=== PATIENT | female | born 1940 | race Caucasian/White ===

== ENCOUNTER 2024-05-10 02:37 | Inpatient (IN) | payer MEDICARE, OTHER ==
[~2024-05-10] VITALS: Ht 157.5 cm; Wt 68.0 kg
[2024-05-10] MEDS ORDERED: MORPHINE SULFATE 4 MG/1 ML DISP.SYRIN ONE ×2 (03:23→13:45)
[2024-05-10] MEDS ORDERED: KETOROLAC TROMETHAMINE 15 MG INJ ONE (03:24)
[2024-05-10] MEDS ORDERED: ONDANSETRON 4 MG/2 ML VIAL ONE ×2 (03:24→13:44)
[2024-05-10 03:38] LABS: BASOPHILS % (AUTO) 0.4 % (0.0-2.0); EOSINOPHILS # (AUTO) 0.1 K/uL (0.0-0.7); EOSINOPHILS % (AUTO) 1.6 % (0.0-7.0); HEMATOCRIT 36.8 % (31.2-41.9); HEMOGLOBIN 12.3 g/dL (10.9-14.3); LYMPHOCYTES % (AUTO) 12.3 % (20.5-51.5); MEAN CORPUSCULAR HEMOGLOBIN 27.1 uug (24.7-32.8); MEAN CORPUSCULAR HGB CONC 34 g/dL (32.3-35.6); MONOCYTES # (AUTO) 0.5 K/uL (0.1-1.30); MONOCYTES % (AUTO) 6.5 % (0.0-11.0); NEUTROPHILS # (AUTO) 6.2 K/uL (1.8-8.9); NEUTROPHILS % (AUTO) 79.2 % (38.5-71.5); PLATELET COUNT (AUTO) 268 K/uL (179-408); RED BLOOD CELL COUNT(AUTO) 4.54 MIL/uL (3.63-4.92); RED CELL DISTRIBUTION WIDTH 15.4 % (12.3-17.7); WHITE BLOOD COUNT (AUTO) 7.8 K/uL (3.8-11.8)
[2024-05-10] MEDS: KETOROLAC TROMETHAMINE 15 MG INJ IVP ONE (03:39)
[2024-05-10] MEDS: MORPHINE SULFATE 2 MG/1 ML DISP.SYRIN IM ONE (03:39)
[2024-05-10] MEDS: IV NORMAL SALINE 1000 ML BAG IV ONE (03:39)
[2024-05-10] MEDS: ONDANSETRON 4 MG/2 ML VIAL IV ONE (03:39)
[2024-05-10 04:11] LABS: ALANINE AMINOTRANSFERASE 18 U/L (14-59); ALBUMIN 3.1 g/dL (3.4-5.0); ALKALINE PHOSPHATASE 80 U/L (50-136); ASPARTATE AMINOTRANSFERASE 16 U/L (15-37); BILIRUBIN,DIRECT 0.1 mg/dL (0.0-0.2); BILIRUBIN,TOTAL 0.5 mg/dL (0.2-1.0); CALCIUM 8.7 mg/dL (8.5-10.1); CARBON DIOXIDE 25 mmol/L (21-32); CHLORIDE 106 mmol/L (98-107); GLUCOSE 186 mg/dL (74-106); POTASSIUM 4.3 mmol/L (3.5-5.1); SODIUM SERUM 143 mmol/L (136-145); TOTAL PROTEIN, SERUM 6.9 g/dL (6.4-8.2); UREA NITROGEN, BLOOD 21 mg/dL (7-18)
[2024-05-10] MEDS ORDERED: DEXTROSE 50% 50 ML DISP.SYRIN IV PRN ×2 (06:00→19:30)
[2024-05-10] MEDS ORDERED: MAGNESIUM HYDROXIDE 30 ML LIQUID UDC PO PRN (06:00)
[2024-05-10] MEDS ORDERED: MORPHINE SULFATE 2 MG/1 ML DISP.SYRIN SQ PRN (06:00)
[2024-05-10] MEDS ORDERED: ACETAMINOPHEN 325 MG TABLET PO PRN (06:00)
[2024-05-10] MEDS: BLOOD SUGAR DIAGNOSTIC 1 EACH STRIP VI SCH ×2 (06:59→20:54)
[2024-05-10] MEDS ORDERED: DULA1.5P SQ (12:06)
[2024-05-10] MEDS ORDERED: DEXL60CA3 PO (12:06)
[2024-05-10] MEDS ORDERED: DAPA10TA PO (12:06)
[2024-05-10] MEDS ORDERED: IRBE1TAB33 PO (12:06)
[2024-05-10] MEDS ORDERED: PREG75CA PO (12:06)
[2024-05-10] MEDS ORDERED: MIRA50TA PO (12:06)
[2024-05-10] MEDS ORDERED: RANO10005 PO (12:06)
[2024-05-10] MEDS ORDERED: MEMA1CAP3 PO (12:06)
[2024-05-10] MEDS ORDERED: PIOG15TA8 PO (12:06)
[2024-05-10] MEDS ORDERED: LINA1TAB7 PO (12:06)
[2024-05-10] MEDS ORDERED: ASPI81TA31 PO (12:06)
[2024-05-10] MEDS ORDERED: NEBI10TA2 PO (12:06)
[2024-05-10] MEDS ORDERED: CLOP75TA33 PO (12:06)
[2024-05-10] MEDS ORDERED: AMLO-212 PO (12:06)
[2024-05-10] MEDS ORDERED: MECL-225 PO (12:06)
[2024-05-10] MEDS ORDERED: INSULIN REGULAR, HUMAN 1000 UNIT/10 ML VIAL ONE (12:50)
[2024-05-10] MEDS: INSULIN REGULAR, HUMAN 1000 UNIT/10 ML VIAL SQ PRN ×2 (12:55→20:58)
[2024-05-10] MEDS: ONDANSETRON 4 MG/2 ML VIAL IV PRN (13:56)
[2024-05-10] MEDS: MORPHINE SULFATE 2 MG/1 ML DISP.SYRIN SQ PRN (13:56)
[2024-05-10 14:17] VITALS: BP 130/56; TEMP 97.9; O2SAT 97
[2024-05-10] MEDS ORDERED: MORPHINE SULFATE 2 MG/1 ML DISP.SYRIN IV PRN (17:21)
[2024-05-10] MEDS: MORPHINE SULFATE 4 MG/1 ML DISP.SYRIN IV PRN (17:32)
[2024-05-10 19:45] VITALS: BP 135/51; TEMP 97.6; O2SAT 95
[2024-05-11] MEDS ORDERED: DEXTROSE 50% 50 ML DISP.SYRIN IV PRN (05:15)
[2024-05-11 05:18] VITALS: BP 136/73; TEMP 98.5; O2SAT 94
[2024-05-11] MEDS: BLOOD SUGAR DIAGNOSTIC 1 EACH STRIP VI SCH (05:23)
[2024-05-11] MEDS: INSULIN REGULAR, HUMAN 1000 UNIT/10 ML VIAL SQ PRN (05:47)
[2024-05-11] MEDS ORDERED: MECLIZINE HCL 12.5 MG TABLET PO PRN (09:45)
[2024-05-11] MEDS ORDERED: LIDOCAINE HCL 2% 5 ML JELLY ONE (11:40)
[2024-05-11] MEDS ORDERED: ROPIVACAINE HCL/PF 0.5% ( 5 MG/ML ) , 20 ML VIAL ONE (11:40)
[2024-05-11 11:41] VITALS: BP 150/59; TEMP 98.2; O2SAT 98
[2024-05-11] MEDS ORDERED: KETAMINE HCL 500 MG/5 ML VIAL ONE (11:41)
[2024-05-11] MEDS ORDERED: FAMOTIDINE. 20 MG/2 ML VIAL IV ONE (11:41)
[2024-05-11] MEDS ORDERED: ROCURONIUM BROMIDE 50 MG/5 ML VIAL ONE (11:41)
[2024-05-11] MEDS ORDERED: MIDAZOLAM HCL 10 MG/2 ML VIAL ONE (11:41)
[2024-05-11] MEDS ORDERED: FENTANYL CITRATE 100 MCG/2 ML AMPUL ONE (11:41)
[2024-05-11] MEDS ORDERED: TRANEXAMIC ACID 1,000 MG/10 ML VIAL ONE (11:47)
[2024-05-11] MEDS ORDERED: PROPOFOL 200 MG/20 ML BOTTLE ONE (12:01)
[2024-05-11] MEDS ORDERED: VANCOMYCIN 1000 MG VIAL ONE (12:34)
[2024-05-11] MEDS ORDERED: LABETALOL HCL 100 MG/20 ML VIAL ONE ×2 (12:36→13:41)
[2024-05-11] MEDS: LABETALOL HCL 100 MG/20 ML VIAL IV PRN (13:46)
[2024-05-11] MEDS: HYDROMORPHONE 1 MG/1 ML DISP.SYRIN IV PRN (13:55)
[2024-05-11] MEDS ORDERED: IV D5W-0.45% NS +20 KCL 1,000 ML IV ONE (14:22)
[2024-05-11] MEDS: hydrALAZINE HCL 20 MG/1 ML VIAL IV PRN (15:18)
[2024-05-11] MEDS: POTASSIUM CHLORIDE 20 MEQ in IV D5 1/2 NS 1000 ML 1,000 ML IV PRN (15:39)
[2024-05-11 15:50] VITALS: BP 193/88; TEMP 98; O2SAT 98
[2024-05-11] MEDS: MEMANTINE HCL 10 MG TABLET PO SCH (16:41)
[2024-05-11] MEDS: PREGABALIN 25 MG CAPSULE PO SCH (16:41)
[2024-05-11] MEDS ORDERED: Medication Not On Formulary EA (Pregabalin (Lyrica) 75 MG) PO SCH (17:00)
[2024-05-11 19:35] VITALS: BP 143/71; TEMP 98.1; O2SAT 98
[2024-05-11 20:37] LABS: BASOPHILS % (AUTO) 0.3 % (0.0-2.0); HEMATOCRIT 36.1 % (31.2-41.9); HEMOGLOBIN 11.6 g/dL (10.9-14.3); LYMPHOCYTES # (AUTO) 0.6 K/uL (0.8-4.8); LYMPHOCYTES % (AUTO) 7.1 % (20.5-51.5); MEAN CORPUSCULAR HEMOGLOBIN 26.6 uug (24.7-32.8); MEAN CORPUSCULAR HGB CONC 32 g/dL (32.3-35.6); MEAN CORPUSCULAR VOLUME 82.9 fL (75.5-95.3); MONOCYTES # (AUTO) 0.4 K/uL (0.1-1.30); MONOCYTES % (AUTO) 4.9 % (0.0-11.0); NEUTROPHILS # (AUTO) 7.4 K/uL (1.8-8.9); NEUTROPHILS % (AUTO) 87.7 % (38.5-71.5); PLATELET COUNT (AUTO) 329 K/uL (179-408); RED BLOOD CELL COUNT(AUTO) 4.36 MIL/uL (3.63-4.92); RED CELL DISTRIBUTION WIDTH 15.4 % (12.3-17.7); WHITE BLOOD COUNT (AUTO) 8.5 K/uL (3.8-11.8)
[2024-05-11] MEDS: CEFAZOLIN 1 G in IV DEXTROSE 5% 50 ML IV SCH (20:39)
[2024-05-11 20:41] LABS: DIFFERENTIAL COMMENT 1
[2024-05-11 20:49] LABS: CALCIUM 8.2 mg/dL (8.5-10.1); CARBON DIOXIDE 21 mmol/L (21-32); CHLORIDE 102 mmol/L (98-107); GLUCOSE 196 mg/dL (74-106); MAGNESIUM 1.6 mg/dL (1.8-2.4); PHOSPHOROUS 4.1 mg/dL (2.5-4.9); SODIUM SERUM 135 mmol/L (136-145); UREA NITROGEN, BLOOD 18 mg/dL (7-18)
[2024-05-11] MEDS: METOPROLOL TARTRATE 50 MG TABLET PO SCH (20:59)
[2024-05-12] MEDS: MORPHINE SULFATE 2 MG/1 ML DISP.SYRIN IV PRN (01:20)
[2024-05-12 04:20] VITALS: BP 156/69; TEMP 98; O2SAT 96
[2024-05-12] MEDS: PANTOPRAZOLE SODIUM 40 MG TABLET.DR PO SCH (06:22)
[2024-05-12] MEDS: HYDROCODONE/APAP 10-325 MG TABLET PO PRN (06:28)
[2024-05-12] MEDS: DONEPEZIL 5 MG TABLET PO SCH (08:20)
[2024-05-12] MEDS: AMLODIPINE 5 MG TABLET PO SCH (08:21)
[2024-05-12] MEDS ORDERED: Medication Not On Formulary EA (Memantine HCl/Donepezil HCl (Namzaric 28 mg-10 mg Capsul PO SCH (09:00)
[2024-05-12 12:16] VITALS: BP 128/48; TEMP 98; O2SAT 99
[2024-05-12 16:39] VITALS: BP 111/90; TEMP 99.1; O2SAT 76
[2024-05-13 06:48] VITALS: BP 135/65; TEMP 98.7; O2SAT 98
[2024-05-13 08:40] VITALS: BP 135/65
[2024-05-13] MEDS: REMEDY ESSENTIAL ZINC PASTE 113 GM TP PRN (12:08)
== END 2024-05-13 14:45 | DRG 522 ==
LOC: ER 02:58 → TRANSITION 05:00 → MEDSURG3 13:37
PROVIDERS: ATTEND Internal Medicine
PROC: 0SRS0JA Replacement of Left Hip Joint, Femoral Surface with Synthetic Substitute, Uncemented, Open Approach (ICD-10-PCS; principal; 2024-05-11)
PROC: 05H933Z Insertion of Infusion Device into Right Brachial Vein, Percutaneous Approach (ICD-10-PCS; 2024-05-12)
DX: M84.452A Pathological fracture, left femur, initial encounter for fracture (principal); E11.65 Type 2 diabetes mellitus with hyperglycemia; M16.0 Bilateral primary osteoarthritis of hip; C50.912 Malignant neoplasm of unspecified site of left female breast; E11.40 Type 2 diabetes mellitus with diabetic neuropathy, unspecified; I10 Essential (primary) hypertension; F03.90 Unspecified dementia, unspecified severity, without behavioral disturbance, psychotic disturbance, mood disturbance, and anxiety; E11.51 Type 2 diabetes mellitus with diabetic peripheral angiopathy without gangrene; Z79.82 Long term (current) use of aspirin; Z79.899 Other long term (current) drug therapy; Z79.02 Long term (current) use of antithrombotics/antiplatelets; Z79.84 Long term (current) use of oral hypoglycemic drugs
CPT/HCPCS: 36415; 71045; 72170; 73502; 73700; 76642; 83735; 84100; 84443; 85025; 85730; 88341; 88342; 88360; 93005; 93307; A4649; C1776; G0378; J0360; J0690; J1100; J1171; J1815; J1885; J2250; J2270; J2405; J2795; J3010; J3370; J3480; J3490; J7040; J7070

== ENCOUNTER 2024-05-13 15:08 | Inpatient (IN) | payer MEDICARE, OTHER ==
[~2024-05-13] VITALS: Ht 157.5 cm; Wt 68.0 kg
[~2024-05-13 15:08] MED LIST: AMLO-212 PO; ASPI81TA31 PO; CLOP75TA33 PO; DAPA10TA PO; DEXL60CA3 PO; DULA1.5P SQ; IRBE1TAB33 PO; LINA1TAB7 PO; MECL-225 PO; MEMA1CAP3 PO; MIRA50TA PO; NEBI10TA2 PO; PIOG15TA8 PO; PREG75CA PO; RANO10005 PO
[2024-05-13 16:14] VITALS: BP 141/61; TEMP 98.5
[2024-05-13] MEDS ORDERED: DEXTROSE 50% 50 ML DISP.SYRIN IV PRN (17:30)
[2024-05-13 18:31] VITALS: O2SAT 97
[2024-05-13 20:25] VITALS: BP 160/72; TEMP 98.8
[2024-05-13] MEDS: BLOOD SUGAR DIAGNOSTIC 1 EACH STRIP VI SCH (20:35)
[2024-05-13] MEDS: INSULIN REGULAR, HUMAN 1000 UNIT/10 ML VIAL SQ PRN (20:41)
[2024-05-13] MEDS: METOPROLOL TARTRATE 50 MG TABLET PO SCH (20:45)
[2024-05-13] MEDS: HYDROCODONE/APAP 10-325 MG TABLET PO PRN (20:45)
[2024-05-14 06:01] VITALS: BP 155/72; TEMP 98; O2SAT 94
[2024-05-14] MEDS: PANTOPRAZOLE SODIUM 40 MG TABLET.DR PO SCH (06:41)
[2024-05-14] MEDS ORDERED: RANOLAZINE 1000 MG PO SCH (09:00)
[2024-05-14] MEDS ORDERED: Medication Not On Formulary EA (Mirabegron (Myrbetriq) 50 MG) PO SCH (09:00)
[2024-05-14] MEDS ORDERED: DAPAGLIFLOZIN PROPANEDIOL 10 MG TABLET PO SCH (09:00)
[2024-05-14] MEDS ORDERED: Medication Not On Formulary EA (Memantine HCl/Donepezil HCl (Namzaric 28 mg-10 mg Capsul PO SCH (09:00)
[2024-05-14] MEDS: LOSARTAN POTASSIUM 50 MG TABLET PO SCH (09:00)
[2024-05-14] MEDS ORDERED: Medication Not On Formulary EA (Linagliptin/Metformin HCl (Jentadueto Xr 2.5 mg-1,000 mg PO SCH (09:00)
[2024-05-14] MEDS ORDERED: Medication Not On Formulary EA (Pregabalin (Lyrica) 75 MG) PO SCH (09:00)
[2024-05-14] MEDS: MEMANTINE HCL 10 MG TABLET PO SCH (09:49)
[2024-05-14] MEDS: RANOLAZINE 500 MG TAB.ER.12H PO SCH (09:49)
[2024-05-14] MEDS: HYDROCHLOROTHIAZIDE 25 MG TABLET PO SCH (09:50)
[2024-05-14] MEDS: AMLODIPINE 5 MG TABLET PO SCH (09:51)
[2024-05-14] MEDS: DONEPEZIL 10 MG TABLET PO SCH (09:51)
[2024-05-14] MEDS: CLOPIDOGREL 75 MG TABLET PO SCH (09:52)
[2024-05-14] MEDS: PIOGLITAZONE HCL 15 MG TABLET PO SCH (09:52)
[2024-05-14] MEDS: PREGABALIN 25 MG CAPSULE PO SCH (09:52)
[2024-05-14] MEDS: LINAGLIPTIN 5 MG TABLET PO SCH (09:52)
[2024-05-14] MEDS: ASPIRIN 81 MG TAB.CHEW PO SCH (09:52)
[2024-05-14] MEDS: METFORMIN XR 500 MG TAB.SR.24H PO SCH (09:55)
[2024-05-14] MEDS: DAPAGLIFLOZIN PROPANEDIOL 5 MG TABLET PO SCH (09:55)
[2024-05-14 15:45] VITALS: BP 123/59; TEMP 98.4; O2SAT 99
[2024-05-14 16:15] VITALS: O2SAT 98
[2024-05-14 20:20] VITALS: BP 136/62
[2024-05-14 20:55] VITALS: BP 139/63; TEMP 98.1; O2SAT 97
[2024-05-15 00:43] VITALS: O2SAT 98
[2024-05-15 07:25] VITALS: BP 149/70; TEMP 97.8; O2SAT 98
[2024-05-15 19:12] VITALS: BP 133/102; TEMP 97.8; O2SAT 97
[2024-05-15 20:00] VITALS: BP 150/63; TEMP 98.1; O2SAT 96
[2024-05-16 04:49] VITALS: O2SAT 98
[2024-05-16 05:00] VITALS: BP 129/73; TEMP 97.8; O2SAT 96
[2024-05-16 14:00] VITALS: O2SAT 96
[2024-05-16 16:02] VITALS: BP 129/58; TEMP 97.7; O2SAT 100
[2024-05-17 00:23] VITALS: BP 122/53; TEMP 98
[2024-05-17 02:03] VITALS: O2SAT 98
[2024-05-17 07:39] VITALS: BP 149/71; TEMP 98.1
[2024-05-17 08:11] LABS: BASOPHILS % (AUTO) 0.6 % (0.0-2.0); EOSINOPHILS # (AUTO) 0.2 K/uL (0.0-0.7); EOSINOPHILS % (AUTO) 3.2 % (0.0-7.0); HEMATOCRIT 32.4 % (31.2-41.9); HEMOGLOBIN 10.5 g/dL (10.9-14.3); LYMPHOCYTES # (AUTO) 1.2 K/uL (0.8-4.8); MEAN CORPUSCULAR HEMOGLOBIN 26.9 uug (24.7-32.8); MEAN CORPUSCULAR HGB CONC 33 g/dL (32.3-35.6); MEAN CORPUSCULAR VOLUME 82.6 fL (75.5-95.3); MONOCYTES # (AUTO) 0.4 K/uL (0.1-1.30); MONOCYTES % (AUTO) 8.1 % (0.0-11.0); NEUTROPHILS # (AUTO) 3.5 K/uL (1.8-8.9); NEUTROPHILS % (AUTO) 66.1 % (38.5-71.5); PLATELET COUNT (AUTO) 347 K/uL (179-408); RED BLOOD CELL COUNT(AUTO) 3.92 MIL/uL (3.63-4.92); RED CELL DISTRIBUTION WIDTH 15.4 % (12.3-17.7); WHITE BLOOD COUNT (AUTO) 5.4 K/uL (3.8-11.8)
[2024-05-17 08:23] LABS: DIFFERENTIAL COMMENT 1
[2024-05-17] MEDS: PREGABALIN 25 MG CAPSULE PO PRN (09:01)
[2024-05-17 09:05] LABS: ALANINE AMINOTRANSFERASE 17 U/L (14-59); ALBUMIN 2.2 g/dL (3.4-5.0); ALKALINE PHOSPHATASE 66 U/L (50-136); ASPARTATE AMINOTRANSFERASE 6 U/L (15-37); BILIRUBIN,TOTAL 0.4 mg/dL (0.2-1.0); CALCIUM 8.4 mg/dL (8.5-10.1); CARBON DIOXIDE 23 mmol/L (21-32); CHLORIDE 105 mmol/L (98-107); CHOLESTEROL 146 mg/dL (<200); CREATININE 0.7 mg/dL (0.6-1.3); GLUCOSE 137 mg/dL (74-106); HDL CHOLESTEROL 35 mg/dL (40-60); MAGNESIUM 1.8 mg/dL (1.8-2.4); PHOSPHOROUS 3.7 mg/dL (2.5-4.9); POTASSIUM 4.3 mmol/L (3.5-5.1); SODIUM SERUM 138 mmol/L (136-145); TOTAL PROTEIN, SERUM 6.2 g/dL (6.4-8.2); TRIGLYCERIDES 175 MG/DL (30-150); UREA NITROGEN, BLOOD 25 mg/dL (7-18)
[2024-05-17 09:31] LABS: THYROID STIMULATING HORMONE 3.553 mIU/mL (0.358-3.740)
[2024-05-17 15:00] VITALS: BP 133/64; TEMP 97.9; O2SAT 95
[2024-05-17 17:32] LABS: IRON, SERUM 25 ug/dL (50-175)
[2024-05-17 21:26] VITALS: BP 130/51; TEMP 97.8; O2SAT 95
[2024-05-18 04:32] VITALS: O2SAT 98
[2024-05-18 06:43] VITALS: BP 133/61; TEMP 97.8; O2SAT 94
[2024-05-18 08:00] VITALS: BP 118/68; TEMP 98
[2024-05-18] MEDS: ASPIRIN EC 81 MG TABLET.DR PO SCH (09:11)
[2024-05-18] MEDS: CYANOCOBALAMIN 1,000 MCG TABLET PO SCH (09:13)
[2024-05-18 16:00] VITALS: BP 133/70; TEMP 97.8; O2SAT 94
[2024-05-18] MEDS: MECLIZINE HCL 12.5 MG TABLET PO PRN (19:30)
[2024-05-18 20:07] VITALS: BP 181/98; TEMP 97.6; O2SAT 95
[2024-05-19 04:37] VITALS: BP 137/70; TEMP 97.9; O2SAT 95
[2024-05-19] MEDS: FERROUS GLUCONATE 324 MG TABLET PO SCH (09:37)
[2024-05-19] MEDS: PROTEIN SUPPLEMENT (PROSTAT) 30 ML LIQUID PO SCH (09:52)
[2024-05-19] MEDS: KETOROLAC TROMETHAMINE 30 MG INJ IM ONE (12:09)
[2024-05-19] MEDS ORDERED: NALOXONE HCL 0.4 MG/ML AMPUL IV PRN (15:00)
[2024-05-19 15:57] VITALS: BP 117/53; TEMP 97.7; O2SAT 97
[2024-05-19 20:41] VITALS: BP 125/62; TEMP 97.7; O2SAT 94
[2024-05-19] MEDS: OXYCODONE HCL 10 MG TAB.SR.12H PO SCH (21:18)
[2024-05-20 07:40] LABS: BASOPHILS % (AUTO) 0.3 % (0.0-2.0); EOSINOPHILS # (AUTO) 0.1 K/uL (0.0-0.7); EOSINOPHILS % (AUTO) 1.8 % (0.0-7.0); HEMATOCRIT 33.6 % (31.2-41.9); HEMOGLOBIN 11.1 g/dL (10.9-14.3); LYMPHOCYTES # (AUTO) 0.9 K/uL (0.8-4.8); LYMPHOCYTES % (AUTO) 11.5 % (20.5-51.5); MEAN CORPUSCULAR HEMOGLOBIN 26.9 uug (24.7-32.8); MEAN CORPUSCULAR HGB CONC 33 g/dL (32.3-35.6); MEAN CORPUSCULAR VOLUME 81.9 fL (75.5-95.3); MONOCYTES # (AUTO) 0.6 K/uL (0.1-1.30); MONOCYTES % (AUTO) 7.4 % (0.0-11.0); NEUTROPHILS # (AUTO) 6.2 K/uL (1.8-8.9); PLATELET COUNT (AUTO) 406 K/uL (179-408); RED BLOOD CELL COUNT(AUTO) 4.11 MIL/uL (3.63-4.92); RED CELL DISTRIBUTION WIDTH 15.5 % (12.3-17.7); WHITE BLOOD COUNT (AUTO) 7.9 K/uL (3.8-11.8)
[2024-05-20 07:44] VITALS: BP 130/72; TEMP 97.6; O2SAT 98
[2024-05-20 07:54] LABS: DIFFERENTIAL COMMENT 1
[2024-05-20 07:58] LABS: ALBUMIN 2.4 g/dL (3.4-5.0); ALKALINE PHOSPHATASE 74 U/L (50-136); ASPARTATE AMINOTRANSFERASE 10 U/L (15-37); BILIRUBIN,TOTAL 0.4 mg/dL (0.2-1.0); CALCIUM 8.6 mg/dL (8.5-10.1); CARBON DIOXIDE 24 mmol/L (21-32); CHLORIDE 102 mmol/L (98-107); GLUCOSE 158 mg/dL (74-106); MAGNESIUM 1.9 mg/dL (1.8-2.4); POTASSIUM 4.2 mmol/L (3.5-5.1); SODIUM SERUM 138 mmol/L (136-145); TOTAL PROTEIN, SERUM 6.6 g/dL (6.4-8.2); UREA NITROGEN, BLOOD 38 mg/dL (7-18)
[2024-05-20 08:00] LABS: ALANINE AMINOTRANSFERASE < 6 U/L (14-59)
[2024-05-20 15:45] VITALS: BP 133/68; TEMP 97.6; O2SAT 96
[2024-05-20 20:34] VITALS: BP 130/41; TEMP 97.9; O2SAT 98
[2024-05-21 06:35] VITALS: BP 130/40; TEMP 97.9; O2SAT 93
[2024-05-21 07:28] VITALS: BP 160/73; TEMP 97.6; O2SAT 98
[2024-05-21 14:35] LABS: BASOPHILS % (AUTO) 0.4 % (0.0-2.0); EOSINOPHILS # (AUTO) 0.1 K/uL (0.0-0.7); EOSINOPHILS % (AUTO) 1.1 % (0.0-7.0); HEMATOCRIT 34.1 % (31.2-41.9); HEMOGLOBIN 11.1 g/dL (10.9-14.3); LYMPHOCYTES # (AUTO) 0.9 K/uL (0.8-4.8); LYMPHOCYTES % (AUTO) 10.7 % (20.5-51.5); MEAN CORPUSCULAR HEMOGLOBIN 26.6 uug (24.7-32.8); MEAN CORPUSCULAR HGB CONC 33 g/dL (32.3-35.6); MEAN CORPUSCULAR VOLUME 81.6 fL (75.5-95.3); MONOCYTES # (AUTO) 0.8 K/uL (0.1-1.30); MONOCYTES % (AUTO) 8.6 % (0.0-11.0); NEUTROPHILS # (AUTO) 6.9 K/uL (1.8-8.9); NEUTROPHILS % (AUTO) 79.2 % (38.5-71.5); PLATELET COUNT (AUTO) 436 K/uL (179-408); RED BLOOD CELL COUNT(AUTO) 4.18 MIL/uL (3.63-4.92); RED CELL DISTRIBUTION WIDTH 15.3 % (12.3-17.7); WHITE BLOOD COUNT (AUTO) 8.7 K/uL (3.8-11.8)
[2024-05-21 15:03] LABS: DIFFERENTIAL COMMENT 1
[2024-05-21 15:27] LABS: CALCIUM 8.5 mg/dL (8.5-10.1); CARBON DIOXIDE 20 mmol/L (21-32); CHLORIDE 102 mmol/L (98-107); GLUCOSE 164 mg/dL (74-106); POTASSIUM 4.4 mmol/L (3.5-5.1); SODIUM SERUM 136 mmol/L (136-145); UREA NITROGEN, BLOOD 44 mg/dL (7-18)
[2024-05-21 15:50] VITALS: BP 127/54; TEMP 97.2; O2SAT 97
[2024-05-21 20:35] VITALS: BP 130/74; TEMP 97.8; O2SAT 95
[2024-05-22 06:04] VITALS: BP 135/45; TEMP 97.9; O2SAT 95
[2024-05-22 08:03] VITALS: BP 148/81; TEMP 97.9; O2SAT 93
[2024-05-22] MEDS ORDERED: ONDANSETRON HCL 4 MG TABLET PO PRN (12:45)
[2024-05-22 13:52] LABS: BASOPHILS % (AUTO) 0.2 % (0.0-2.0); EOSINOPHILS # (AUTO) 0.1 K/uL (0.0-0.7); EOSINOPHILS % (AUTO) 0.8 % (0.0-7.0); HEMATOCRIT 40.5 % (31.2-41.9); HEMOGLOBIN 12.7 g/dL (10.9-14.3); LYMPHOCYTES % (AUTO) 7.7 % (20.5-51.5); MEAN CORPUSCULAR HGB CONC 31 g/dL (32.3-35.6); MEAN CORPUSCULAR VOLUME 86.3 fL (75.5-95.3); MONOCYTES % (AUTO) 7.4 % (0.0-11.0); NEUTROPHILS % (AUTO) 83.9 % (38.5-71.5); PLATELET COUNT (AUTO) 512 K/uL (179-408); RED BLOOD CELL COUNT(AUTO) 4.69 MIL/uL (3.63-4.92); RED CELL DISTRIBUTION WIDTH 16.2 % (12.3-17.7); WHITE BLOOD COUNT (AUTO) 13.1 K/uL (3.8-11.8)
[2024-05-22 13:56] LABS: DIFFERENTIAL COMMENT 1
[2024-05-22 15:13] LABS: CALCIUM 8.8 mg/dL (8.5-10.1); CARBON DIOXIDE 17 mmol/L (21-32); CHLORIDE 102 mmol/L (98-107); CREATININE 1.4 mg/dL (0.6-1.3); GLUCOSE 220 mg/dL (74-106); POTASSIUM 4.7 mmol/L (3.5-5.1); SODIUM SERUM 137 mmol/L (136-145); UREA NITROGEN, BLOOD 55 mg/dL (7-18)
[2024-05-22 15:19] LABS: ALANINE AMINOTRANSFERASE 17 U/L (14-59); ALBUMIN 2.6 g/dL (3.4-5.0); ALKALINE PHOSPHATASE 81 U/L (50-136); ASPARTATE AMINOTRANSFERASE 12 U/L (15-37); BILIRUBIN,TOTAL 0.5 mg/dL (0.2-1.0); TOTAL PROTEIN, SERUM 6.5 g/dL (6.4-8.2)
[2024-05-22 15:21] LABS: *BILIRUBIN,URIN NEGATIVE (NEGATIVE); *BLOOD, URINE 1+ (NEGATIVE); *CLARITY,URINE CLEAR (CLEAR); *COLOR,URINE Other (YELLOW); *KETONES,URINE 1+ (NEGATIVE); *PROTEIN,URINE 2+ (NEGATIVE); *UROBILINOGEN,URINE 0.2 E.U./dl (NORMAL); LEUKOCYTE ESTERASE ,URINE 1+ (NEGATIVE); NITRITE, URINE NEGATIVE (NEGATIVE); PH,URINE 6.5 (5.0-8.0); UGLUCOSE 2+ (NEGATIVE)
[2024-05-22 15:25] LABS: BACTERIA,URINE MODERATE /HPF (NONE SEEN); RBC,URINE 20-50 /HPF (0-3); SQUAMOUS EPITHELIAL CELL,UR MODERATE /HPF (NONE SEEN); URINE AMORPHOUS URATE MODERATE /HPF; WBC,URINE 20-50 /HPF (0-3)
[2024-05-22] MEDS ORDERED: CEFTRIAXONE 1 G VIAL IM SCH (16:30)
[2024-05-22 16:48] VITALS: BP 106/56; TEMP 97.5; O2SAT 91
[2024-05-22] MEDS: CEFTRIAXONE 1 G in IV DEXTROSE 5% 50 ML IV SCH (17:13)
[2024-05-22 20:42] VITALS: BP 138/60; TEMP 97.4; O2SAT 96
[2024-05-23 01:06] LABS: CANCER ANTIGEN 15-3 16.6 U/mL (0.0-25.0); CARCINOEMBRYONIC AG (CEA) 1.5 ng/mL (0.0-4.7)
[2024-05-23 06:57] VITALS: BP 121/59; TEMP 97; O2SAT 94
[2024-05-23 08:33] VITALS: TEMP 97.9
[2024-05-23 15:38] VITALS: TEMP 98.6
[2024-05-23 15:49] VITALS: TEMP 97.6
[2024-05-23 21:34] VITALS: BP 129/68; TEMP 97.6; O2SAT 93
[2024-05-23] MEDS: BETHANECHOL CHLORIDE 25 MG TABLET PO SCH (22:00)
[2024-05-24 07:40] VITALS: BP 124/54; TEMP 97.7; O2SAT 94
[2024-05-24 08:29] LABS: BASOPHILS % (AUTO) 0.4 % (0.0-2.0); DIFFERENTIAL COMMENT 0; EOSINOPHILS # (AUTO) 0.1 K/uL (0.0-0.7); HEMOGLOBIN 11.1 g/dL (10.9-14.3); LYMPHOCYTES % (AUTO) 13.2 % (20.5-51.5); MEAN CORPUSCULAR HGB CONC 33 g/dL (32.3-35.6); MEAN CORPUSCULAR VOLUME 82.8 fL (75.5-95.3); MONOCYTES # (AUTO) 0.6 K/uL (0.1-1.30); MONOCYTES % (AUTO) 8.3 % (0.0-11.0); NEUTROPHILS # (AUTO) 5.6 K/uL (1.8-8.9); NEUTROPHILS % (AUTO) 76.1 % (38.5-71.5); PLATELET COUNT (AUTO) 483 K/uL (179-408); RED BLOOD CELL COUNT(AUTO) 4.11 MIL/uL (3.63-4.92); RED CELL DISTRIBUTION WIDTH 15.8 % (12.3-17.7); WHITE BLOOD COUNT (AUTO) 7.3 K/uL (3.8-11.8)
[2024-05-24 08:53] LABS: CALCIUM 8.4 mg/dL (8.5-10.1); CARBON DIOXIDE 22 mmol/L (21-32); CHLORIDE 101 mmol/L (98-107); CREATININE 1.1 mg/dL (0.6-1.3); GLUCOSE 151 mg/dL (74-106); POTASSIUM 4.3 mmol/L (3.5-5.1); SODIUM SERUM 135 mmol/L (136-145); UREA NITROGEN, BLOOD 63 mg/dL (7-18)
[2024-05-24 11:23] VITALS: BP 152/59; TEMP 97.5; O2SAT 93
[2024-05-24 19:43] VITALS: BP 128/57; TEMP 97.3; O2SAT 95
[2024-05-24 20:32] VITALS: BP 139/61; TEMP 98.2; O2SAT 97
[2024-05-25 05:33] VITALS: BP 121/63; TEMP 97.9; O2SAT 96
[2024-05-25 08:00] VITALS: BP 137/64; TEMP 97.8; O2SAT 96
[2024-05-25] MEDS ORDERED: DOSING BY PHARMACY-MD TO SPECIFY MED/ROUTE XX PRN (10:45)
[2024-05-25 16:03] VITALS: BP 104/60; TEMP 97.7; O2SAT 98
[2024-05-25 20:43] VITALS: BP 134/74; TEMP 97.6; O2SAT 99
[2024-05-26] MEDS: DEXLANSOPRAZOLE 60 MG PO SCH (06:25)
[2024-05-26] MEDS: [UNRECOGNIZED DRUG - OTHER] PO SCH (06:25)
[2024-05-26 06:50] VITALS: BP 135/70; TEMP 97.1; O2SAT 97
[2024-05-26 07:46] VITALS: BP 103/57; TEMP 98; O2SAT 97
[2024-05-26] MEDS: MYRBETRIQ 50 MG PO SCH (08:25)
[2024-05-26] MEDS: [UNRECOGNIZED DRUG - OTHER] PO SCH (08:25)
[2024-05-26] MEDS: [UNRECOGNIZED DRUG - OTHER] PO SCH (08:26)
[2024-05-26] MEDS: NEBIVOLOL 10 MG PO SCH (08:26)
[2024-05-26] MEDS: [UNRECOGNIZED DRUG - OTHER] PO SCH (08:28)
[2024-05-26] MEDS: LINAGLIPTIN PO SCH (08:28)
[2024-05-26] MEDS: METFORMIN PO SCH (08:28)
[2024-05-26 15:00] LABS: IRON, SERUM 28 ug/dL (50-175)
[2024-05-26 15:12] LABS: FERRITIN 114 ng/mL (8-252)
[2024-05-26 15:44] VITALS: BP 96/58; TEMP 97.2; O2SAT 97
[2024-05-26] MEDS: GLUCERNA SHAKE 237 ML CAN PO SCH (16:40)
[2024-05-26 20:34] VITALS: BP 126/38; TEMP 97.7; O2SAT 92
[2024-05-26 22:45] VITALS: O2SAT 95
[2024-05-27 01:15] VITALS: BP 121/53; TEMP 97.4
[2024-05-27] MEDS: MAGNESIUM HYDROXIDE 30 ML LIQUID UDC PO PRN (06:05)
[2024-05-27 07:07] VITALS: BP 103/45; TEMP 97.6; O2SAT 96
[2024-05-27 07:45] VITALS: BP 120/54; TEMP 97.8; O2SAT 96
[2024-05-27 15:34] LABS: BASOPHILS % (AUTO) 0.3 % (0.0-2.0); EOSINOPHILS # (AUTO) 0.1 K/uL (0.0-0.7); EOSINOPHILS % (AUTO) 0.7 % (0.0-7.0); HEMATOCRIT 35.1 % (31.2-41.9); HEMOGLOBIN 11.2 g/dL (10.9-14.3); LYMPHOCYTES % (AUTO) 10.7 % (20.5-51.5); MEAN CORPUSCULAR HEMOGLOBIN 26.4 uug (24.7-32.8); MEAN CORPUSCULAR HGB CONC 32 g/dL (32.3-35.6); MEAN CORPUSCULAR VOLUME 82.8 fL (75.5-95.3); MONOCYTES # (AUTO) 0.7 K/uL (0.1-1.30); MONOCYTES % (AUTO) 7.3 % (0.0-11.0); NEUTROPHILS # (AUTO) 7.8 K/uL (1.8-8.9); PLATELET COUNT (AUTO) 581 K/uL (179-408); RED BLOOD CELL COUNT(AUTO) 4.24 MIL/uL (3.63-4.92); WHITE BLOOD COUNT (AUTO) 9.6 K/uL (3.8-11.8)
[2024-05-27 15:35] VITALS: BP 103/57; TEMP 97.6; O2SAT 97
[2024-05-27 15:40] LABS: DIFFERENTIAL COMMENT 1
[2024-05-27 15:47] LABS: CALCIUM 8.5 mg/dL (8.5-10.1); CARBON DIOXIDE 24 mmol/L (21-32); CHLORIDE 100 mmol/L (98-107); GLUCOSE 163 mg/dL (74-106); POTASSIUM 4.8 mmol/L (3.5-5.1); SODIUM SERUM 137 mmol/L (136-145); UREA NITROGEN, BLOOD 45 mg/dL (7-18)
[2024-05-27] MEDS: FERROUS GLUCONATE 324 MG TABLET PO SCH (17:31)
[2024-05-27 21:12] VITALS: BP 123/54; TEMP 97.8; O2SAT 97
[2024-05-28 05:08] VITALS: BP 126/46; TEMP 97.4; O2SAT 95
[2024-05-28 16:03] VITALS: BP 116/45; TEMP 97.7; O2SAT 96
[2024-05-28 19:56] LABS: *BILIRUBIN,URIN NEGATIVE (NEGATIVE); *BLOOD, URINE NEGATIVE (NEGATIVE); *CLARITY,URINE CLEAR (CLEAR); *COLOR,URINE YELLOW (YELLOW); *KETONES,URINE NEGATIVE (NEGATIVE); *PROTEIN,URINE NEGATIVE (NEGATIVE); *UROBILINOGEN,URINE 0.2 E.U./dl (NORMAL); LEUKOCYTE ESTERASE ,URINE TRACE (NEGATIVE); NITRITE, URINE NEGATIVE (NEGATIVE); PH,URINE 5.5 (5.0-8.0); UGLUCOSE 2+ (NEGATIVE)
[2024-05-28 20:25] LABS: BACTERIA,URINE FEW /HPF (NONE SEEN); RBC,URINE 0-3 /HPF (0-3); SQUAMOUS EPITHELIAL CELL,UR FEW /HPF (NONE SEEN); WBC,URINE 20-50 /HPF (0-3); YEAST,URINE FEW /HPF (NONE SEEN)
[2024-05-29 08:00] VITALS: BP 116/45; TEMP 97.8; O2SAT 99
[2024-05-29 08:56] LABS: BASOPHILS % (AUTO) 0.3 % (0.0-2.0); EOSINOPHILS # (AUTO) 0.1 K/uL (0.0-0.7); EOSINOPHILS % (AUTO) 1.7 % (0.0-7.0); LYMPHOCYTES # (AUTO) 1.3 K/uL (0.8-4.8); LYMPHOCYTES % (AUTO) 17.4 % (20.5-51.5); MEAN CORPUSCULAR HGB CONC 32 g/dL (32.3-35.6); MEAN CORPUSCULAR VOLUME 83.2 fL (75.5-95.3); MONOCYTES # (AUTO) 0.5 K/uL (0.1-1.30); NEUTROPHILS # (AUTO) 5.7 K/uL (1.8-8.9); NEUTROPHILS % (AUTO) 73.6 % (38.5-71.5); PLATELET COUNT (AUTO) 510 K/uL (179-408); RED BLOOD CELL COUNT(AUTO) 4.09 MIL/uL (3.63-4.92); RED CELL DISTRIBUTION WIDTH 15.8 % (12.3-17.7); WHITE BLOOD COUNT (AUTO) 7.8 K/uL (3.8-11.8)
[2024-05-29 09:00] LABS: DIFFERENTIAL COMMENT 1
[2024-05-29 09:09] LABS: CALCIUM 8.6 mg/dL (8.5-10.1); CARBON DIOXIDE 24 mmol/L (21-32); CHLORIDE 106 mmol/L (98-107); GLUCOSE 203 mg/dL (74-106); POTASSIUM 4.3 mmol/L (3.5-5.1); SODIUM SERUM 141 mmol/L (136-145); UREA NITROGEN, BLOOD 39 mg/dL (7-18)
[2024-05-29] MEDS ORDERED: IOHEXOL 300MG/ML 100 ML INFUS..BTL ONE (15:30)
[2024-05-29] MEDS ORDERED: IV NORMAL SALINE 250 ML IV ONE (15:30)
[2024-05-29] MEDS ORDERED: SWABABLE VALVE TRANSFER SET EA MC ONE (15:30)
[2024-05-29 17:42] VITALS: BP 146/51; TEMP 97.8; O2SAT 99
[2024-05-29 20:00] VITALS: BP 131/54; TEMP 97.8; O2SAT 96
[2024-05-30 07:03] VITALS: BP 147/62; TEMP 98.6; O2SAT 95
[2024-05-30 07:43] VITALS: BP 134/58; TEMP 97.6; O2SAT 96
[2024-05-30 16:00] VITALS: BP 113/75; TEMP 97.6; O2SAT 97
[2024-05-30 20:20] VITALS: BP 111/52; TEMP 97.9; O2SAT 93
[2024-05-31 06:00] VITALS: BP 118/47; TEMP 98; O2SAT 94
[2024-05-31 08:00] VITALS: BP 124/56; TEMP 97.6; O2SAT 98
[2024-05-31] MEDS: DAPAGLIFLOZIN PROPANEDIOL 10 MG TABLET PO SCH (11:19)
[2024-05-31 16:00] VITALS: BP 123/58; TEMP 97.8; O2SAT 98
== END 2024-05-31 17:09 | DRG 560 ==
PROVIDERS: ADMIT Physical Medicine & Rehabilitation Pain Medicine; ATTEND Physical Medicine & Rehabilitation Pain Medicine
DX: Z47.1 Aftercare following joint replacement surgery (principal); C78.7 Secondary malignant neoplasm of liver and intrahepatic bile duct; C79.51 Secondary malignant neoplasm of bone; D68.59 Other primary thrombophilia; N17.9 Acute kidney failure, unspecified; M48.56XA Collapsed vertebra, not elsewhere classified, lumbar region, initial encounter for fracture; N39.0 Urinary tract infection, site not specified; Z96.642 Presence of left artificial hip joint; E11.40 Type 2 diabetes mellitus with diabetic neuropathy, unspecified; F03.90 Unspecified dementia, unspecified severity, without behavioral disturbance, psychotic disturbance, mood disturbance, and anxiety; M19.90 Unspecified osteoarthritis, unspecified site; R22.2 Localized swelling, mass and lump, trunk; Z85.3 Personal history of malignant neoplasm of breast; D50.9 Iron deficiency anemia, unspecified; E11.65 Type 2 diabetes mellitus with hyperglycemia; E27.8 Other specified disorders of adrenal gland; E88.09 Other disorders of plasma-protein metabolism, not elsewhere classified; I11.9 Hypertensive heart disease without heart failure; I25.10 Atherosclerotic heart disease of native coronary artery without angina pectoris; M16.0 Bilateral primary osteoarthritis of hip; N28.1 Cyst of kidney, acquired; N20.0 Calculus of kidney; Z74.09 Other reduced mobility
CPT/HCPCS: 36415; 70450; 71045; 71250; 71260; 73521; 82378; 82652; 83550; 83735; 84100; 84443; 84484; 85025; 85610; 86300; 93005; 94760; 97535-GO-CO; C1758; J0696; J1815; J1885; J8597; Q9967

== ENCOUNTER 2024-08-14 17:41 | Inpatient (IN) | payer MEDICARE, OTHER ==
[~2024-08-14] VITALS: Ht 160 cm; Wt 61.8 kg
[~2024-08-14 17:41] MED LIST changes: -MEMA1CAP3 PO
[2024-08-14 19:19] LABS: BASOPHILS % (AUTO) 0.5 % (0.0-2.0); EOSINOPHILS % (AUTO) 0.4 % (0.0-7.0); HEMATOCRIT 35.3 % (31.2-41.9); HEMOGLOBIN 11.3 g/dL (10.9-14.3); LYMPHOCYTES # (AUTO) 1.2 K/uL (0.8-4.8); LYMPHOCYTES % (AUTO) 21.1 % (20.5-51.5); MEAN CORPUSCULAR HEMOGLOBIN 25.4 uug (24.7-32.8); MEAN CORPUSCULAR HGB CONC 32 g/dL (32.3-35.6); MEAN CORPUSCULAR VOLUME 79.3 fL (75.5-95.3); MONOCYTES # (AUTO) 0.6 K/uL (0.1-1.30); MONOCYTES % (AUTO) 10.9 % (0.0-11.0); NEUTROPHILS % (AUTO) 67.1 % (38.5-71.5); PLATELET COUNT (AUTO) 403 K/uL (179-408); RED BLOOD CELL COUNT(AUTO) 4.45 MIL/uL (3.63-4.92); RED CELL DISTRIBUTION WIDTH 16.4 % (12.3-17.7); WHITE BLOOD COUNT (AUTO) 5.9 K/uL (3.8-11.8)
[2024-08-14 19:20] LABS: DIFFERENTIAL COMMENT 1
[2024-08-14 19:30] LABS: ALANINE AMINOTRANSFERASE 46 U/L (14-59); ALBUMIN 2.3 g/dL (3.4-5.0); ALKALINE PHOSPHATASE 296 U/L (50-136); ASPARTATE AMINOTRANSFERASE 52 U/L (15-37); BILIRUBIN,DIRECT 0.2 mg/dL (0.0-0.2); BILIRUBIN,TOTAL 0.4 mg/dL (0.2-1.0); CALCIUM 8.9 mg/dL (8.5-10.1); CARBON DIOXIDE 27 mmol/L (21-32); CHLORIDE 103 mmol/L (98-107); CREATININE 0.9 mg/dL (0.6-1.3); GLUCOSE 156 mg/dL (74-106); POTASSIUM 4.3 mmol/L (3.5-5.1); SODIUM SERUM 140 mmol/L (136-145); TOTAL PROTEIN, SERUM 6.3 g/dL (6.4-8.2); UREA NITROGEN, BLOOD 27 mg/dL (7-18)
[2024-08-14] MEDS ORDERED: HYDROMORPHONE 1 MG/1 ML DISP.SYRIN ONE ×2 (20:22→20:50)
[2024-08-14] MEDS ORDERED: ONDANSETRON 4 MG/2 ML VIAL ONE (20:23)
[2024-08-14] MEDS: ONDANSETRON 4 MG/2 ML VIAL IV ONE (20:55)
[2024-08-14] MEDS: HYDROMORPHONE 1 MG/1 ML DISP.SYRIN IV ONE (20:55)
[2024-08-14] MEDS ORDERED: ONDANSETRON 4 MG/2 ML VIAL IV PRN (21:15)
[2024-08-14] MEDS ORDERED: AMLODIPINE 5 MG TABLET PO PRN (21:15)
[2024-08-14] MEDS ORDERED: REMEDY ESSENTIAL ZINC PASTE 113 GM TP PRN (21:15)
[2024-08-14] MEDS: ENOXAPARIN SODIUM 40 MG/0.4 ML DISP.SYRIN SQ SCH (22:49)
[2024-08-14 23:03] VITALS: BP 126/66; TEMP 98.3; O2SAT 96
[2024-08-15 05:39] VITALS: BP 113/65; TEMP 97.6; O2SAT 99
[2024-08-15 06:17] LABS: BASOPHILS % (AUTO) 0.4 % (0.0-2.0); EOSINOPHILS % (AUTO) 0.5 % (0.0-7.0); HEMATOCRIT 33.8 % (31.2-41.9); HEMOGLOBIN 10.8 g/dL (10.9-14.3); LYMPHOCYTES % (AUTO) 20.2 % (20.5-51.5); MEAN CORPUSCULAR HEMOGLOBIN 25.4 uug (24.7-32.8); MEAN CORPUSCULAR HGB CONC 32 g/dL (32.3-35.6); MEAN CORPUSCULAR VOLUME 79.5 fL (75.5-95.3); MONOCYTES # (AUTO) 0.5 K/uL (0.1-1.30); MONOCYTES % (AUTO) 10.5 % (0.0-11.0); NEUTROPHILS # (AUTO) 3.3 K/uL (1.8-8.9); NEUTROPHILS % (AUTO) 68.4 % (38.5-71.5); PLATELET COUNT (AUTO) 365 K/uL (179-408); RED BLOOD CELL COUNT(AUTO) 4.26 MIL/uL (3.63-4.92); RED CELL DISTRIBUTION WIDTH 16.7 % (12.3-17.7); WHITE BLOOD COUNT (AUTO) 4.9 K/uL (3.8-11.8)
[2024-08-15 06:22] LABS: DIFFERENTIAL COMMENT 1
[2024-08-15 06:29] LABS: CALCIUM 8.3 mg/dL (8.5-10.1); CARBON DIOXIDE 25 mmol/L (21-32); CHLORIDE 103 mmol/L (98-107); CREATININE 0.7 mg/dL (0.6-1.3); GLUCOSE 123 mg/dL (74-106); MAGNESIUM 1.8 mg/dL (1.8-2.4); PHOSPHOROUS 3.6 mg/dL (2.5-4.9); POTASSIUM 4.3 mmol/L (3.5-5.1); SODIUM SERUM 139 mmol/L (136-145); UREA NITROGEN, BLOOD 23 mg/dL (7-18)
[2024-08-15 06:37] LABS: THYROID STIMULATING HORMONE 3.409 mIU/mL (0.358-3.740)
[2024-08-15] MEDS: CLOPIDOGREL 75 MG TABLET PO SCH (09:41)
[2024-08-15] MEDS: PIOGLITAZONE HCL 15 MG TABLET PO SCH (09:41)
[2024-08-15] MEDS: CARVEDILOL 3.125 MG TABLET PO SCH (09:42)
[2024-08-15] MEDS: HYDROCHLOROTHIAZIDE 25 MG TABLET PO SCH (09:42)
[2024-08-15] MEDS: RANOLAZINE 500 MG TAB.ER.12H PO SCH (09:43)
[2024-08-15] MEDS: VALSARTAN 80 MG TABLET PO SCH (09:44)
[2024-08-15] MEDS: DAPAGLIFLOZIN PROPANEDIOL 10 MG TABLET PO SCH (09:44)
[2024-08-15 11:21] VITALS: BP 121/50; TEMP 98; O2SAT 97
[2024-08-15] MEDS ORDERED: DEXTROSE 50% 50 ML DISP.SYRIN IV PRN (12:30)
[2024-08-15] MEDS: HYDROCODONE/APAP 10-325 MG TABLET PO PRN (12:30)
[2024-08-15 12:40] LABS: IRON, SERUM 27 ug/dL (50-175)
[2024-08-15] MEDS ORDERED: LANS30CA56 PO (14:16)
[2024-08-15] MEDS ORDERED: HYDR12.55 PO (14:18)
[2024-08-15] MEDS ORDERED: LOSA100T31 PO (14:18)
[2024-08-15] MEDS ORDERED: LINA1TAB5 PO (14:19)
[2024-08-15] MEDS ORDERED: ONDA-104 PO (14:20)
[2024-08-15] MEDS ORDERED: ASPI-1420 PO (14:21)
[2024-08-15] MEDS ORDERED: HYDR-3980 PO (15:24)
[2024-08-15 15:54] VITALS: BP 112/56; TEMP 97.9; O2SAT 100
[2024-08-15] MEDS ORDERED: HYDROCODONE/APAP 10-325 MG TABLET PO PRN (16:00)
[2024-08-15] MEDS: BLOOD SUGAR DIAGNOSTIC 1 EACH STRIP VI SCH (16:53)
[2024-08-15] MEDS: INSULIN REGULAR, HUMAN 1000 UNIT/10 ML VIAL SQ PRN (16:55)
[2024-08-15 19:00] VITALS: BP 119/53; TEMP 97.8; O2SAT 93
[2024-08-16] MEDS: MORPHINE SULFATE 2 MG/1 ML DISP.SYRIN IV PRN (03:04)
[2024-08-16 06:29] VITALS: BP 158/71; TEMP 98.3; O2SAT 92
[2024-08-16] MEDS ORDERED: MIRABEGRON PO SCH (09:00)
[2024-08-16] MEDS ORDERED: HYDROCHLOROTHIAZIDE 6.25 MG PO SCH (09:00)
[2024-08-16] MEDS: HYDROCHLOROTHIAZIDE 12.5 MG CAPSULE PO SCH (09:18)
[2024-08-16 11:49] VITALS: BP 130/79; TEMP 98; O2SAT 98
[2024-08-16 13:05] LABS: BASOPHILS % (AUTO) 0.3 % (0.0-2.0); EOSINOPHILS % (AUTO) 0.1 % (0.0-7.0); HEMATOCRIT 33.2 % (31.2-41.9); LYMPHOCYTES # (AUTO) 0.7 K/uL (0.8-4.8); LYMPHOCYTES % (AUTO) 8.1 % (20.5-51.5); MEAN CORPUSCULAR HEMOGLOBIN 26.1 uug (24.7-32.8); MEAN CORPUSCULAR HGB CONC 33 g/dL (32.3-35.6); MEAN CORPUSCULAR VOLUME 78.7 fL (75.5-95.3); MONOCYTES # (AUTO) 0.7 K/uL (0.1-1.30); MONOCYTES % (AUTO) 8.6 % (0.0-11.0); NEUTROPHILS # (AUTO) 7.1 K/uL (1.8-8.9); NEUTROPHILS % (AUTO) 82.9 % (38.5-71.5); PLATELET COUNT (AUTO) 341 K/uL (179-408); RED BLOOD CELL COUNT(AUTO) 4.22 MIL/uL (3.63-4.92); RED CELL DISTRIBUTION WIDTH 16.3 % (12.3-17.7); WHITE BLOOD COUNT (AUTO) 8.5 K/uL (3.8-11.8)
[2024-08-16 13:10] LABS: DIFFERENTIAL COMMENT 1
[2024-08-16 13:20] LABS: ALANINE AMINOTRANSFERASE 53 U/L (14-59); ALBUMIN 2.3 g/dL (3.4-5.0); ALKALINE PHOSPHATASE 347 U/L (50-136); ASPARTATE AMINOTRANSFERASE 165 U/L (15-37); BILIRUBIN,TOTAL 0.6 mg/dL (0.2-1.0); CALCIUM 9.1 mg/dL (8.5-10.1); CARBON DIOXIDE 24 mmol/L (21-32); CHLORIDE 98 mmol/L (98-107); CREATINE KINASE, TOTAL 91 U/L (26-192); CREATININE 0.6 mg/dL (0.6-1.3); GLUCOSE 174 mg/dL (74-106); MAGNESIUM 1.8 mg/dL (1.8-2.4); POTASSIUM 4.4 mmol/L (3.5-5.1); SODIUM SERUM 134 mmol/L (136-145); TOTAL PROTEIN, SERUM 6.6 g/dL (6.4-8.2); UREA NITROGEN, BLOOD 19 mg/dL (7-18)
[2024-08-16 13:55] LABS: FERRITIN 529 ng/mL (8-252); IRON, SERUM 14 ug/dL (50-175)
[2024-08-16 15:33] VITALS: BP 150/70; TEMP 98.5; O2SAT 96
[2024-08-16] MEDS ORDERED: SWABABLE VALVE TRANSFER SET EA MC ONE (16:59)
[2024-08-16] MEDS ORDERED: IOHEXOL 300MG/ML 100 ML INFUS..BTL ONE (16:59)
[2024-08-16] MEDS ORDERED: IV NORMAL SALINE 250 ML IV ONE (16:59)
[2024-08-16 20:23] LABS: *BILIRUBIN,URIN NEGATIVE (NEGATIVE); *BLOOD, URINE NEGATIVE (NEGATIVE); *CLARITY,URINE CLEAR (CLEAR); *KETONES,URINE 1+ (NEGATIVE); *PROTEIN,URINE 1+ (NEGATIVE); *UROBILINOGEN,URINE 0.2 E.U./dl (NORMAL); LEUKOCYTE ESTERASE ,URINE NEGATIVE (NEGATIVE); NITRITE, URINE NEGATIVE (NEGATIVE); UGLUCOSE 2+ (NEGATIVE)
[2024-08-16] MEDS: ACETAMINOPHEN 325 MG TABLET PO PRN (20:27)
[2024-08-16 20:32] LABS: *COLOR,URINE DARK YELLOW (YELLOW)
[2024-08-16 20:37] LABS: RBC,URINE 0-3 /HPF (0-3)
[2024-08-16 20:38] LABS: BACTERIA,URINE MODERATE /HPF (NONE SEEN); SQUAMOUS EPITHELIAL CELL,UR FEW /HPF (NONE SEEN)
[2024-08-16 20:39] LABS: YEAST,URINE MANY /HPF (NONE SEEN)
[2024-08-16 21:32] VITALS: BP 156/84; TEMP 98.1; O2SAT 94
[2024-08-17 06:00] VITALS: BP 148/82; TEMP 98.1; O2SAT 97
[2024-08-17 06:09] LABS: CARCINOEMBRYONIC AG (CEA) 3.4 ng/mL (0.0-4.7); FOLATE (FOLIC ACID), SERUM 16.6 ng/mL (>3.0)
[2024-08-17 06:26] LABS: BASOPHILS % (AUTO) 0.2 % (0.0-2.0); EOSINOPHILS % (AUTO) 0.1 % (0.0-7.0); HEMOGLOBIN 11.6 g/dL (10.9-14.3); LYMPHOCYTES % (AUTO) 10.4 % (20.5-51.5); MEAN CORPUSCULAR HEMOGLOBIN 25.4 uug (24.7-32.8); MEAN CORPUSCULAR HGB CONC 32 g/dL (32.3-35.6); MEAN CORPUSCULAR VOLUME 78.6 fL (75.5-95.3); MONOCYTES % (AUTO) 10.3 % (0.0-11.0); NEUTROPHILS # (AUTO) 7.3 K/uL (1.8-8.9); PLATELET COUNT (AUTO) 397 K/uL (179-408); RED BLOOD CELL COUNT(AUTO) 4.57 MIL/uL (3.63-4.92); RED CELL DISTRIBUTION WIDTH 16.7 % (12.3-17.7); WHITE BLOOD COUNT (AUTO) 9.2 K/uL (3.8-11.8)
[2024-08-17 06:36] LABS: DIFFERENTIAL COMMENT 1
[2024-08-17 07:50] VITALS: BP 160/84; TEMP 97; O2SAT 96
[2024-08-17 08:08] LABS: *IMMUNOGLOBULIN G, SERUM 805 mg/dL (586-1602); IMMUNOGLOBULIN A, SERUM 342 mg/dL (64-422); IMMUNOGLOBULIN M, SERUM 37 mg/dL (26-217)
[2024-08-17] MEDS: MYRBETRIQ 50 MG PO SCH (08:54)
[2024-08-17] MEDS: ASPIRIN EC 81 MG TABLET.DR PO SCH (08:54)
[2024-08-17 13:07] LABS: FREE KAPPA LT CHAINS SERUM 28.8 mg/L (3.3-19.4); FREE LAMBDA LT CHAIN SERUM 17.6 mg/L (5.7-26.3); KAPPA/LAMBDA RATIO SERUM 1.64 (0.26-1.65)
[2024-08-17] MEDS ORDERED: GADOTERATE MEGLUMINE 10 MMOL/20 ML VIAL IV ONE (14:04)
[2024-08-17 14:47] VITALS: BP 119/56; TEMP 98.4; O2SAT 97
[2024-08-17 19:48] VITALS: BP 124/52; TEMP 98.5; O2SAT 95
[2024-08-18 04:41] VITALS: BP_SYST 138; BP_SYST 143; BP_DIAS 63; BP_DIAS 70; TEMP 98.2; O2SAT 97
[2024-08-18 11:03] VITALS: BP 108/49; TEMP 97.7; O2SAT 94
[2024-08-18 15:24] VITALS: BP 110/55; TEMP 97.7; O2SAT 97
[2024-08-18 20:03] VITALS: BP 136/67; TEMP 98.5; O2SAT 95
[2024-08-19 04:16] VITALS: BP 154/63; TEMP 98; O2SAT 97
[2024-08-19 12:00] VITALS: BP 116/48; TEMP 99.8; O2SAT 93
[2024-08-19 16:00] VITALS: BP 127/67; TEMP 98.1; O2SAT 94
[2024-08-19 17:59] LABS: *BILIRUBIN,URIN NEGATIVE (NEGATIVE); *BLOOD, URINE NEGATIVE (NEGATIVE); *CLARITY,URINE CLEAR (CLEAR); *COLOR,URINE YELLOW (YELLOW); *KETONES,URINE NEGATIVE (NEGATIVE); *PROTEIN,URINE NEGATIVE (NEGATIVE); *UROBILINOGEN,URINE 0.2 E.U./dl (NORMAL); LEUKOCYTE ESTERASE ,URINE NEGATIVE (NEGATIVE); NITRITE, URINE NEGATIVE (NEGATIVE); UGLUCOSE 2+ (NEGATIVE)
[2024-08-19 18:12] LABS: BACTERIA,URINE MODERATE /HPF (NONE SEEN); RBC,URINE 0-3 /HPF (0-3); SQUAMOUS EPITHELIAL CELL,UR MODERATE /HPF (NONE SEEN); YEAST,URINE MANY /HPF (NONE SEEN)
[2024-08-19 19:00] VITALS: BP 128/58; TEMP 98.5; O2SAT 95
[2024-08-20 06:36] LABS: BASOPHILS % (AUTO) 0.4 % (0.0-2.0); EOSINOPHILS % (AUTO) 0.2 % (0.0-7.0); HEMATOCRIT 36.6 % (31.2-41.9); HEMOGLOBIN 12.1 g/dL (10.9-14.3); LYMPHOCYTES # (AUTO) 1.2 K/uL (0.8-4.8); LYMPHOCYTES % (AUTO) 15.7 % (20.5-51.5); MEAN CORPUSCULAR HEMOGLOBIN 25.7 uug (24.7-32.8); MEAN CORPUSCULAR HGB CONC 33 g/dL (32.3-35.6); MEAN CORPUSCULAR VOLUME 77.7 fL (75.5-95.3); MONOCYTES # (AUTO) 0.8 K/uL (0.1-1.30); NEUTROPHILS # (AUTO) 5.5 K/uL (1.8-8.9); NEUTROPHILS % (AUTO) 72.7 % (38.5-71.5); PLATELET COUNT (AUTO) 453 K/uL (179-408); RED BLOOD CELL COUNT(AUTO) 4.71 MIL/uL (3.63-4.92); RED CELL DISTRIBUTION WIDTH 16.5 % (12.3-17.7); WHITE BLOOD COUNT (AUTO) 7.6 K/uL (3.8-11.8)
[2024-08-20 06:45] LABS: DIFFERENTIAL COMMENT 1
[2024-08-20 06:55] LABS: ALANINE AMINOTRANSFERASE 44 U/L (14-59); ALBUMIN 1.9 g/dL (3.4-5.0); ALKALINE PHOSPHATASE 346 U/L (50-136); ASPARTATE AMINOTRANSFERASE 89 U/L (15-37); BILIRUBIN,TOTAL 0.5 mg/dL (0.2-1.0); CALCIUM 8.9 mg/dL (8.5-10.1); CARBON DIOXIDE 24 mmol/L (21-32); CHLORIDE 101 mmol/L (98-107); CREATININE 0.7 mg/dL (0.6-1.3); GLUCOSE 144 mg/dL (74-106); MAGNESIUM 2.2 mg/dL (1.8-2.4); PHOSPHOROUS 3.2 mg/dL (2.5-4.9); POTASSIUM 4.2 mmol/L (3.5-5.1); SODIUM SERUM 136 mmol/L (136-145); TOTAL PROTEIN, SERUM 6.3 g/dL (6.4-8.2); UREA NITROGEN, BLOOD 22 mg/dL (7-18)
[2024-08-20 06:56] VITALS: BP 154/86; TEMP 98; O2SAT 95
[2024-08-20] MEDS: FLUCONAZOLE 200 MG/NS 100ML IV 200 MG in PREMIXED 1 EACH IV ONE (08:44)
[2024-08-20 11:28] VITALS: BP 105/57; TEMP 97.9; O2SAT 98
[2024-08-20 15:39] VITALS: BP 120/59; TEMP 97.7; TEMP 97.8; O2SAT 96
[2024-08-20 19:15] VITALS: BP 105/54; TEMP 98; O2SAT 94
[2024-08-21 05:57] VITALS: BP 129/67; TEMP 97.9; O2SAT 96
[2024-08-21 11:06] VITALS: BP 126/60; TEMP 98.6; O2SAT 95
[2024-08-21 15:20] VITALS: BP 142/62; TEMP 98.4; O2SAT 96
[2024-08-23 05:12] LABS: A/G RATIO 0.8 (0.7-1.7); ALBUMIN 2.7 g/dL (2.9-4.4); ALPHA-1-GLOBULIN 0.4 g/dL (0.0-0.4); ALPHA-2-GLOBULIN 1.2 g/dL (0.4-1.0); BETA GLOBULIN 1.1 g/dL (0.7-1.3); GAMMA GLOBULIN 0.6 g/dL (0.4-1.8); GLOBULIN, TOTAL 3.2 g/dL (2.2-3.9); M-SPIKE Not Observed g/dL (Not Observed); PROTEIN, TOTAL 5.9 g/dL (6.0-8.5)
[2024-09-06] MEDS ORDERED: CEPH500C2 PO (13:44)
[2024-09-08] MEDS ORDERED: POTA10CA43 PO (10:20)
[2024-09-08] MEDS ORDERED: FURO20TA4 PO (10:20)
== END 2024-08-21 16:15 | DRG 605 ==
LOC: ER 17:47 → MEDSURG3 19:10
PROVIDERS: ADMIT Nurse Practitioner Acute Care; ATTEND Internal Medicine
PROC: 05HA33Z Insertion of Infusion Device into Left Brachial Vein, Percutaneous Approach (ICD-10-PCS; principal; 2024-08-17)
DX: S70.02XA Contusion of left hip, initial encounter (principal); C78.7 Secondary malignant neoplasm of liver and intrahepatic bile duct; C79.51 Secondary malignant neoplasm of bone; D68.59 Other primary thrombophilia; M48.56XA Collapsed vertebra, not elsewhere classified, lumbar region, initial encounter for fracture; G83.4 Cauda equina syndrome; W19.XXXA Unspecified fall, initial encounter; Y92.009 Unspecified place in unspecified non-institutional (private) residence as the place of occurrence of the external cause; M25.451 Effusion, right hip; M25.552 Pain in left hip; Z96.642 Presence of left artificial hip joint; Y92.89 Other specified places as the place of occurrence of the external cause; S72.012D Unspecified intracapsular fracture of left femur, subsequent encounter for closed fracture with routine healing; M97.02XD Periprosthetic fracture around internal prosthetic left hip joint, subsequent encounter; W19.XXXD Unspecified fall, subsequent encounter; C50.912 Malignant neoplasm of unspecified site of left female breast; D35.02 Benign neoplasm of left adrenal gland; E88.09 Other disorders of plasma-protein metabolism, not elsewhere classified; F03.90 Unspecified dementia, unspecified severity, without behavioral disturbance, psychotic disturbance, mood disturbance, and anxiety; E11.65 Type 2 diabetes mellitus with hyperglycemia; D50.9 Iron deficiency anemia, unspecified; I11.9 Hypertensive heart disease without heart failure; I25.10 Atherosclerotic heart disease of native coronary artery without angina pectoris; I71.9 Aortic aneurysm of unspecified site, without rupture; M48.07 Spinal stenosis, lumbosacral region; M51.371 Other intervertebral disc degeneration, lumbosacral region with lower extremity pain only; Z87.440 Personal history of urinary (tract) infections; N28.1 Cyst of kidney, acquired; N20.0 Calculus of kidney; Z79.84 Long term (current) use of oral hypoglycemic drugs; Z79.02 Long term (current) use of antithrombotics/antiplatelets; Z88.0 Allergy status to penicillin; Z91.81 History of falling; Z79.899 Other long term (current) drug therapy; M51.26 Other intervertebral disc displacement, lumbar region; M47.816 Spondylosis without myelopathy or radiculopathy, lumbar region
CPT/HCPCS: 36415; 70030-TC; 71045; 71260; 72148; 72192; 73502; 73551; 82378; 82746; 82784; 83550; 83735; 84100; 84155; 84165; 84443; 85025; 85730; 86300; 86334; 87086; A9575; G0378; J1171; J1450; J1650; J1815; J2270; J2405; Q9967

== ENCOUNTER 2024-09-02 22:15 | Inpatient (IN) | payer MEDICARE, OTHER ==
[~2024-09-02] VITALS: Ht 160 cm; Wt 61.7 kg
[~2024-09-02 22:15] MED LIST changes: +ASPI-1420 PO; -ASPI81TA31 PO; -CLOP75TA33 PO; -DEXL60CA3 PO; -DULA1.5P SQ; +HYDR-3980 PO; +HYDR12.55 PO; -IRBE1TAB33 PO; +LANS30CA56 PO; +LINA1TAB5 PO; -LINA1TAB7 PO; +LOSA100T31 PO; -MECL-225 PO; +ONDA-104 PO; -PREG75CA PO
[2024-09-02 22:49] LABS: BASOPHILS % (AUTO) 0.2 % (0.0-2.0); EOSINOPHILS % (AUTO) 0.1 % (0.0-7.0); HEMATOCRIT 42.5 % (31.2-41.9); HEMOGLOBIN 13.6 g/dL (10.9-14.3); LYMPHOCYTES # (AUTO) 0.8 K/uL (0.8-4.8); LYMPHOCYTES % (AUTO) 9.4 % (20.5-51.5); MEAN CORPUSCULAR HEMOGLOBIN 24.8 uug (24.7-32.8); MEAN CORPUSCULAR HGB CONC 32 g/dL (32.3-35.6); MEAN CORPUSCULAR VOLUME 77.6 fL (75.5-95.3); MONOCYTES # (AUTO) 0.7 K/uL (0.1-1.30); MONOCYTES % (AUTO) 9.1 % (0.0-11.0); NEUTROPHILS # (AUTO) 6.6 K/uL (1.8-8.9); NEUTROPHILS % (AUTO) 81.2 % (38.5-71.5); PLATELET COUNT (AUTO) 416 K/uL (179-408); RED BLOOD CELL COUNT(AUTO) 5.48 MIL/uL (3.63-4.92); RED CELL DISTRIBUTION WIDTH 17.5 % (12.3-17.7); WHITE BLOOD COUNT (AUTO) 8.2 K/uL (3.8-11.8)
[2024-09-02] MEDS ORDERED: CEFEPIME HCL 1 G VIAL ONE (22:50)
[2024-09-02 22:51] LABS: DIFFERENTIAL COMMENT 1
[2024-09-02] MEDS: CEFEPIME HCL 2 G in IV DEXTROSE 5% 100 ML IV ONE (22:57)
[2024-09-02 22:59] LABS: CALCIUM 8.7 mg/dL (8.5-10.1); CARBON DIOXIDE 22 mmol/L (21-32); CHLORIDE 102 mmol/L (98-107); CREATININE 0.9 mg/dL (0.6-1.3); GLUCOSE 206 mg/dL (74-106); POTASSIUM 4.5 mmol/L (3.5-5.1); SODIUM SERUM 138 mmol/L (136-145); UREA NITROGEN, BLOOD 34 mg/dL (7-18)
[2024-09-02 23:00] LABS: *BILIRUBIN,URIN NEGATIVE (NEGATIVE); *CLARITY,URINE CLOUDY (CLEAR); *COLOR,URINE YELLOW (YELLOW); *KETONES,URINE NEGATIVE (NEGATIVE); *PROTEIN,URINE 1+ (NEGATIVE); *UROBILINOGEN,URINE 0.2 E.U./dl (NORMAL); LEUKOCYTE ESTERASE ,URINE TRACE (NEGATIVE); NITRITE, URINE NEGATIVE (NEGATIVE); PH,URINE 5.5 (5.0-8.0)
[2024-09-02] MEDS ORDERED: INSU100V28 SQ (23:01)
[2024-09-02] MEDS ORDERED: DOCU100C36 PO (23:01)
[2024-09-02] MEDS ORDERED: ACET325T53 PO (23:01)
[2024-09-02] MEDS ORDERED: ONDA4TAB11 PO (23:01)
[2024-09-02] MEDS ORDERED: MAGN400O6 PO (23:01)
[2024-09-02] MEDS ORDERED: BISA10SU61 RC (23:01)
[2024-09-02] MEDS ORDERED: NA P133E RC (23:01)
[2024-09-02] MEDS ORDERED: HYDR-3980 PO (23:01)
[2024-09-02 23:05] LABS: ALANINE AMINOTRANSFERASE 68 U/L (14-59); ALKALINE PHOSPHATASE 587 U/L (50-136); ASPARTATE AMINOTRANSFERASE 153 U/L (15-37); BILIRUBIN,DIRECT 0.3 mg/dL (0.0-0.2); BILIRUBIN,TOTAL 0.6 mg/dL (0.2-1.0); TOTAL PROTEIN, SERUM 6.8 g/dL (6.4-8.2)
[2024-09-02 23:09] LABS: *BLOOD, URINE TRACE (NEGATIVE); UGLUCOSE 2+ (NEGATIVE)
[2024-09-02] MEDS: IV NORMAL SALINE 500 ML IV ONE ×2 (23:12→23:40)
[2024-09-02] MEDS: ONDANSETRON 4 MG/2 ML VIAL IV ONE (23:12)
[2024-09-02] MEDS ORDERED: ONDANSETRON 4 MG/2 ML VIAL ONE (23:15)
[2024-09-02 23:17] LABS: LACTIC ACID 3.2 mmol/L (0.4-2.0)
[2024-09-02 23:37] LABS: BACTERIA,URINE MANY /HPF (NONE SEEN); SQUAMOUS EPITHELIAL CELL,UR FEW /HPF (NONE SEEN); WBC,URINE 50-80 /HPF (0-3); YEAST,URINE MANY /HPF (NONE SEEN)
[2024-09-02] MEDS: IV NS 1000 ML 1,000 ML IV ONE (23:41)
[2024-09-03] VITALS (7 sets, daily range): BP systolic 111–138; BP diastolic 51–71; TEMP 97.6–98.3; O2SAT 94–98
[2024-09-03] MEDS ORDERED: HYDROCODONE/APAP 5-325MG TABLET PO PRN (01:00)
[2024-09-03] MEDS ORDERED: ONDANSETRON 4 MG/2 ML VIAL IV PRN (01:00)
[2024-09-03] MEDS ORDERED: MAGNESIUM HYDROXIDE 30 ML LIQUID UDC PO PRN (01:00)
[2024-09-03] MEDS ORDERED: REMEDY ESSENTIAL ZINC PASTE 113 GM TP PRN (01:00)
[2024-09-03] MEDS ORDERED: DEXTROSE 50% 50 ML DISP.SYRIN IV PRN (01:00)
[2024-09-03] MEDS: IV NS 1000 ML 1,000 ML IV PRN (05:54)
[2024-09-03] MEDS: BLOOD SUGAR DIAGNOSTIC 1 EACH STRIP VI SCH (06:06)
[2024-09-03] MEDS: PANTOPRAZOLE SODIUM 40 MG TABLET.DR PO SCH (06:10)
[2024-09-03] MEDS: INSULIN REGULAR, HUMAN 1000 UNIT/10 ML VIAL SQ PRN (07:59)
[2024-09-03] MEDS ORDERED: HYDROCODONE/APAP 10-325 MG TABLET PO PRN (13:15)
[2024-09-03] MEDS ORDERED: BISACODYL 10 MG SUPP.RECT RC PRN (13:15)
[2024-09-03] MEDS ORDERED: FLEET ENEMA 133 ML BOTTLE RC PRN (13:15)
[2024-09-03] MEDS: RANOLAZINE 500 MG TAB.ER.12H PO SCH (16:40)
[2024-09-03] MEDS: CEFEPIME HCL 1 G in IV DEXTROSE 5% 50 ML IV SCH (21:07)
[2024-09-04] VITALS (7 sets, daily range): BP systolic 139–154; BP diastolic 37–80; TEMP 97.6–98.5; O2SAT 95–98
[2024-09-04] MEDS: ACETAMINOPHEN 325 MG TABLET PO PRN (04:01)
[2024-09-04] MEDS: ASPIRIN EC 81 MG TABLET.DR PO SCH (08:14)
[2024-09-04] MEDS: DAPAGLIFLOZIN PROPANEDIOL 10 MG TABLET PO SCH (08:14)
[2024-09-04] MEDS: PIOGLITAZONE HCL 15 MG TABLET PO SCH (08:15)
[2024-09-04] MEDS ORDERED: FLUCONAZOLE 200 MG/100 ML PIGGYBACK ONE (21:37)
[2024-09-04] MEDS: FLUCONAZOLE 200 MG/NS 100ML IV 100 MG in PREMIXED 1 EACH IV SCH (21:51)
[2024-09-05] VITALS (9 sets, daily range): BP systolic 134–148; BP diastolic 72–82; TEMP 97.7–98.6; O2SAT 94–100
[2024-09-05] MEDS: FLUCONAZOLE 100 MG TABLET PO SCH (21:12)
[2024-09-05] MEDS: CEFEPIME HCL 2 GM in IV DEXTROSE 5% 100 ML IV SCH (21:13)
[2024-09-06] VITALS (12 sets, daily range): BP systolic 132–170; BP diastolic 82–99; TEMP 97.4–98.8; O2SAT 94–99
[2024-09-06] MEDS ORDERED: CEPH500C2 PO (13:44)
[2024-09-06] MEDS: METOPROLOL TARTRATE 25 MG TABLET PO ONE (19:32)
[2024-09-06] MEDS: hydrALAZINE HCL 20 MG/1 ML VIAL IV ONE (20:12)
[2024-09-06] MEDS: TEMAZEPAM 15 MG CAPSULE PO PRN (22:21)
[2024-09-06] MEDS: ALBUTEROL SULFATE 2.5 MG/3 ML NEBU NEB PRN (22:28)
[2024-09-06] MEDS: ALPRAZOLAM 0.25 MG TABLET PO ONE (23:53)
[2024-09-07] VITALS (10 sets, daily range): BP systolic 115–149; BP diastolic 66–85; TEMP 97.4–98.4; O2SAT 95–99
[2024-09-07] MEDS: METOPROLOL TARTRATE 50 MG TABLET PO SCH (12:17)
[2024-09-07] MEDS: POTASSIUM CHLORIDE 20 MEQ TAB.PRT.SR PO ONE (19:45)
[2024-09-07] MEDS: FUROSEMIDE 40 MG/4 ML VIAL IV ONE (20:29)
[2024-09-07] MEDS ORDERED: CEFEPIME HCL 1 G VIAL ONE (20:31)
[2024-09-08 06:33] VITALS: BP 142/74; TEMP 97.6; O2SAT 97
[2024-09-08] MEDS ORDERED: FURO20TA4 PO (10:20)
[2024-09-08] MEDS ORDERED: POTA10CA43 PO (10:20)
[2024-09-08 11:19] VITALS: BP 139/72; TEMP 98.2; O2SAT 97
[2024-09-08] MEDS ORDERED: GLUCERNA SHAKE 237 ML CAN PO SCH (17:00)
== END 2024-09-08 14:30 | disposition hospice, home (50) | DRG 871 ==
LOC: ER 22:15 → TELE3 09-03 01:38 → MEDSURG3 09-06 08:05
PROVIDERS: ADMIT Nurse Practitioner Acute Care; ATTEND Internal Medicine
DX: A41.9 Sepsis, unspecified organism (principal); G92.8 Other toxic encephalopathy; J69.0 Pneumonitis due to inhalation of food and vomit; B37.49 Other urogenital candidiasis; C79.51 Secondary malignant neoplasm of bone; D68.59 Other primary thrombophilia; C78.7 Secondary malignant neoplasm of liver and intrahepatic bile duct; M48.56XA Collapsed vertebra, not elsewhere classified, lumbar region, initial encounter for fracture; C50.912 Malignant neoplasm of unspecified site of left female breast; Z96.642 Presence of left artificial hip joint; Z74.09 Other reduced mobility; D50.9 Iron deficiency anemia, unspecified; E86.0 Dehydration; E11.65 Type 2 diabetes mellitus with hyperglycemia; E11.42 Type 2 diabetes mellitus with diabetic polyneuropathy; M15.9 Polyosteoarthritis, unspecified; M51.369 Other intervertebral disc degeneration, lumbar region without mention of lumbar back pain or lower extremity pain; I71.9 Aortic aneurysm of unspecified site, without rupture; N20.0 Calculus of kidney; N28.1 Cyst of kidney, acquired; D35.02 Benign neoplasm of left adrenal gland; E11.51 Type 2 diabetes mellitus with diabetic peripheral angiopathy without gangrene; R59.1 Generalized enlarged lymph nodes; Z91.81 History of falling; R29.6 Repeated falls; Z66 Do not resuscitate; Z88.0 Allergy status to penicillin; Z79.899 Other long term (current) drug therapy; Z79.84 Long term (current) use of oral hypoglycemic drugs; Z79.4 Long term (current) use of insulin; Z79.82 Long term (current) use of aspirin; R13.10 Dysphagia, unspecified; F03.90 Unspecified dementia, unspecified severity, without behavioral disturbance, psychotic disturbance, mood disturbance, and anxiety; I70.0 Atherosclerosis of aorta; I25.10 Atherosclerotic heart disease of native coronary artery without angina pectoris; I50.9 Heart failure, unspecified; I11.0 Hypertensive heart disease with heart failure; R65.20 Severe sepsis without septic shock
CPT/HCPCS: 36415; 70450; 71045; 71250; 83605; 84484; 85025; 85730; 87040; 87086; 94664; A4606; A4663; A6209; A6213; G0378; J0360; J0692; J1450; J1815; J1938; J2405; J7040